=== PATIENT | female | born 1950 | race Two or more races ===

== ENCOUNTER 2018-04-13 11:32 | Outpatient (CLI) | payer MEDICARE, BC ==
[~2018-04-13 11:32] MED LIST: DULO60CA7 PO; LEVO50TA5 PO; LISI-167 PO; METF500T17 PO
[2018-04-13 12:45] LABS: INTERNATIONAL NORMALIZED RATIO 1.04 (0.93-1.1); PROTHROMBIN TIME 10.9 Seconds (9.6-11.5)
[2018-04-13 12:47] LABS: CHLORIDE 107 mmol/L (98-107)
[2018-04-13 13:03] LABS: ALANINE AMINOTRANSFERASE 84 U/L (12-78); ALBUMIN 3.7 g/dL (3.4-5.0); ALKALINE PHOSPHATASE 88 U/L (45-117); ANION GAP 7 mmol/L (5-15); BILIRUBIN,TOTAL 1.3 mg/dL (0.2-1.0); CALCIUM 9.2 mg/dL (8.5-10.1); CREATININE 0.61 mg/dL (0.55-1.02); TOTAL PROTEIN 7.4 g/dL (6.4-8.2)
[2018-04-13 13:16] LABS: BASOPHILS # (AUTO) 0.02 x10^3/uL (0-0.1); BASOPHILS % (AUTO) 0 % (0-1); EOSINOPHILS # (AUTO) 0.07 x10^3/uL (0-0.4); EOSINOPHILS % (AUTO) 1 % (1-7); LYMPHOCYTES # (AUTO) 1.56 x10^3/uL (1-3.4); LYMPHOCYTES % (AUTO) 28 % (22-44); MD NO; MEAN CORPUSCULAR HEMOGLOBIN 30.3 pg (27.0-34.8); MEAN CORPUSCULAR HGB CONC 33.8 g/dL (32.4-35.8); MEAN CORPUSCULAR VOLUME 89.6 fL (80-100); MEAN PLATELET VOLUME 8.9 fL (7.4-10.4); MONOCYTES # (AUTO) 0.38 x10^3/uL (0.2-0.8); MONOCYTES % (AUTO) 7 % (2-9); NEUTROPHILS % (AUTO) 63 % (42-75); PLATELET COUNT 176 x10^3/uL (130-400); RED BLOOD COUNT 5.28 x10^6/uL (3.82-5.3); RED CELL DISTRIBUTION WIDTH 13.4 % (9.6-15.2)
[2018-04-13] MEDS ORDERED: GADOBUTROL 7.5 MMOL/7.5 ML VIAL ONE (13:46)
[2018-05-01] MEDS ORDERED: LACT1CAP35 PO (10:25)
[2018-05-01] MEDS ORDERED: OMEP10CA4 PO (10:25)
== END 2018-04-13 23:59 | disposition home or self-care (01) ==
LOC: CFH 11:32
PROVIDERS: ATTEND Surgery
DX: C50.412 Malignant neoplasm of upper-outer quadrant of left female breast (principal); N60.01 Solitary cyst of right breast; N63.21 Unspecified lump in the left breast, upper outer quadrant; R59.1 Generalized enlarged lymph nodes
CPT/HCPCS: 36415; 80053; 82565; 85025; 85610; 85730; A9585; C8908; 77049

== ENCOUNTER → 2018-04-19 | Outpatient (CLI) | payer MEDICARE, BC | END | disposition home or self-care (01) | LOC: PETCFH 10:26 | PROVIDERS: ATTEND Surgery | DX: C50.412 Malignant neoplasm of upper-outer quadrant of left female breast (principal); R92.8 Other abnormal and inconclusive findings on diagnostic imaging of breast | CPT/HCPCS: 78815; A9552 ==

== ENCOUNTER 2018-05-04 10:18 | Day surgery (SDC) | payer MEDICARE, BC ==
[~2018-05-04] VITALS: Ht 157.5 cm; Wt 71.2 kg
[~2018-05-04 10:18] MED LIST changes: +BUPIVACAINE/PF-EPI 0.5% 1:200K ONE; +ISOSULFAN BLUE 10 MG/ML, 5ML IV ONE; +LACT1CAP35 PO; +OMEP10CA4 PO
[2018-05-04] MEDS ORDERED: LACTATED RINGERS 1,000 ML IV SCH (10:36)
[2018-05-04 10:47] VITALS: BP 130/84
[2018-05-04] MEDS ORDERED: GABAPENTIN 300 MG CAPSULE PO ONE (11:00)
[2018-05-04] MEDS ORDERED: ONDANSETRON ODT 8 MG PO ONE (11:00)
[2018-05-04] MEDS ORDERED: ACETAMINOPHEN 500 MG TABLET PO ONE (11:00)
[2018-05-04] MEDS ORDERED: SCOPOLAMINE PATCH, 1.5MG PATCH.TD72 TD ONE (11:00)
[2018-05-04] MEDS ORDERED: MIDAZOLAM 1 MG/ML, 2ML ONE (11:09)
[2018-05-04] MEDS ORDERED: FENTANYL PF 250 MCG/5ML ONE (11:09)
[2018-05-04] MEDS ORDERED: DEXAMETHASONE 4 MG/ML, 1ML ONE (12:38)
[2018-05-04] MEDS ORDERED: PROPOFOL 10 MG/ML, 20ML ONE (12:38)
[2018-05-04] MEDS ORDERED: ROCURONIUM 10 MG/ML,10ML ONE (12:38)
[2018-05-04] MEDS ORDERED: CEFAZOLIN 1,000 MG ONE (12:38)
[2018-05-04] MEDS ORDERED: ONDANSETRON 2MG/ML, 2ML ONE (12:38)
[2018-05-04] MEDS ORDERED: BUPIVACAINE/PF-EPI 0.5% 1:200K INFIL ONE (12:53)
[2018-05-04] MEDS ORDERED: LABETALOL 5MG/ML, 20ML IV PRN (13:30)
[2018-05-04] MEDS ORDERED: OXYcodone 5 MG/5 ML ORAL.SOL UDC PO PRN (13:30)
[2018-05-04] MEDS ORDERED: HALOPERIDOL 5 MG/ML IV PRN (13:30)
[2018-05-04] MEDS ORDERED: PROMETHAZINE 25 MG/ML, 1ML IV PRN (13:30)
[2018-05-04] MEDS ORDERED: HYDROmorphone 2 MG/ML, 1ML IVPush PRN (13:30)
[2018-05-04] MEDS ORDERED: hydrALAzine 20 MG/ML, 1ML IV PRN (13:30)
[2018-05-04] MEDS ORDERED: FENTANYL PF 100 MCG/2ML IV PRN (13:30)
[2018-05-04] MEDS ORDERED: ALBUTEROL SULFATE 2.5 MG/3 ML NPPB PRN (13:30)
[2018-05-04] MEDS ORDERED: SUGAMMADEX 200 MG/2 ML IVPush ONE (13:48)
== END 2018-05-04 17:05 | disposition home or self-care (01) ==
LOC: OUT 10:18
PROVIDERS: ATTEND Surgery
DX: C50.812 Malignant neoplasm of overlapping sites of left female breast (principal); R59.1 Generalized enlarged lymph nodes; F41.9 Anxiety disorder, unspecified; E11.9 Type 2 diabetes mellitus without complications; I10 Essential (primary) hypertension; E03.9 Hypothyroidism, unspecified; K21.9 Gastro-esophageal reflux disease without esophagitis; Z79.84 Long term (current) use of oral hypoglycemic drugs
CPT/HCPCS: 19303; 38525; 82962; 86803; 87340; 87806; 88305; 88307; C1729; J0690; J1100; J2250; J2405; J2704; J3010; J7120; Q0162; G0475

== ENCOUNTER 2018-05-18 08:46 | Day surgery (SDC) | payer MEDICARE, BC ==
[~2018-05-18] VITALS: Ht 157.5 cm; Wt 69.8 kg
[~2018-05-18 08:46] MED LIST changes: -BUPIVACAINE/PF-EPI 0.5% 1:200K ONE; -ISOSULFAN BLUE 10 MG/ML, 5ML IV ONE
[2018-05-18] MEDS ORDERED: LACTATED RINGERS 1,000 ML IV SCH (09:26)
[2018-05-18] MEDS ORDERED: ACETAMINOPHEN 500 MG TABLET PO ONE (09:30)
[2018-05-18] MEDS ORDERED: SCOPOLAMINE PATCH, 1.5MG PATCH.TD72 TD ONE (09:30)
[2018-05-18] MEDS ORDERED: GABAPENTIN 300 MG CAPSULE PO ONE (09:30)
[2018-05-18] MEDS ORDERED: ONDANSETRON ODT 8 MG PO ONE (09:30)
[2018-05-18 09:33] VITALS: BP 118/79
[2018-05-18] MEDS ORDERED: ACETAMINOPHEN 500 MG TABLET ONE (10:02)
[2018-05-18] MEDS ORDERED: BUPIVACAINE/PF-EPI 0.5% 1:200K ONE (10:44)
[2018-05-18] MEDS ORDERED: HEPARIN 1,000 UNITS/ML, 10ML ONE (10:44)
[2018-05-18] MEDS ORDERED: FENTANYL PF 100 MCG/2ML ONE (11:04)
[2018-05-18] MEDS ORDERED: MIDAZOLAM 1 MG/ML, 2ML ONE (11:04)
[2018-05-18] MEDS ORDERED: PROPOFOL 10 MG/ML, 20ML ONE (11:20)
[2018-05-18] MEDS ORDERED: SUCCINYLCHOLINE 20 MG/ML, 10ML ONE (11:20)
[2018-05-18] MEDS ORDERED: ONDANSETRON 2MG/ML, 2ML ONE (11:20)
[2018-05-18] MEDS ORDERED: CEFAZOLIN 1,000 MG ONE (11:20)
[2018-05-18] MEDS ORDERED: ROCURONIUM 10 MG/ML,10ML ONE (11:20)
[2018-05-18] MEDS ORDERED: KETOROLAC 30 MG/1 ML IV PRN (12:30)
[2018-05-18] MEDS ORDERED: LABETALOL 5MG/ML, 20ML IV PRN (12:30)
[2018-05-18] MEDS ORDERED: HYDROmorphone 1 MG/ML, 1ML AMP IV PRN (12:30)
[2018-05-18] MEDS ORDERED: MEPERIDINE/PF 25MG/0.5ML IVPush PRN (12:30)
[2018-05-18] MEDS ORDERED: ONDANSETRON 2MG/ML, 2ML IVPush PRN (12:30)
[2018-05-18] MEDS ORDERED: ALBUTEROL SULFATE 2.5 MG/3 ML NPPB PRN (12:30)
[2018-05-18] MEDS ORDERED: PROMETHAZINE 25 MG/ML, 1ML IV PRN (12:30)
[2018-05-18] MEDS ORDERED: FENTANYL PF 100 MCG/2ML IV PRN (12:30)
[2018-05-18] MEDS ORDERED: OXYcodone 5 MG/5 ML ORAL.SOL UDC PO PRN (12:30)
[2018-05-18] MEDS ORDERED: METOCLOPRAMIDE 5 MG/ML, 2ML IV PRN (12:30)
[2018-05-18] MEDS ORDERED: hydrALAzine 20 MG/ML, 1ML IV PRN (12:30)
== END 2018-05-18 13:40 | disposition home or self-care (01) ==
LOC: OUT 08:46
PROVIDERS: ATTEND Surgery
DX: Z45.2 Encounter for adjustment and management of vascular access device (principal); C50.812 Malignant neoplasm of overlapping sites of left female breast; F32.9 Major depressive disorder, single episode, unspecified; E11.9 Type 2 diabetes mellitus without complications; I10 Essential (primary) hypertension; E03.9 Hypothyroidism, unspecified; G47.33 Obstructive sleep apnea (adult) (pediatric); Z90.12 Acquired absence of left breast and nipple; Z79.82 Long term (current) use of aspirin; Z79.4 Long term (current) use of insulin
CPT/HCPCS: 36561; 71045; 77001; 82962; 93005; C1788; J0330; J0690; J1644; J2250; J2405; J2704; J3010; J7120; Q0162

== ENCOUNTER → 2018-06-02 | Outpatient (CLI) | payer MEDICARE, BC | END | disposition home or self-care (01) | LOC: CFH 13:14 | PROVIDERS: ATTEND Internal Medicine Hematology & Oncology | DX: C50.812 Malignant neoplasm of overlapping sites of left female breast (principal); E11.9 Type 2 diabetes mellitus without complications; Z87.891 Personal history of nicotine dependence | CPT/HCPCS: 93306 ==

== ENCOUNTER 2018-09-28 07:27 | Outpatient (CLI) | payer MEDICARE, BC | END 2018-09-28 23:59 | disposition home or self-care (01) | LOC: ROC 07:27 | PROVIDERS: ATTEND Radiology Radiation Oncology | DX: Z08 Encounter for follow-up examination after completed treatment for malignant neoplasm (principal); Z85.3 Personal history of malignant neoplasm of breast; Z79.899 Other long term (current) drug therapy | CPT/HCPCS: 77290; 77334; G0463 ==

== ENCOUNTER 2019-07-30 09:10 | Outpatient (CLI) | payer MEDICARE, BC ==
[~2019-07-30 09:10] MED LIST changes: -OMEP10CA4 PO; +OMEP10CA5 PO
== END 2019-07-30 23:59 | disposition home or self-care (01) ==
LOC: ROC 09:10
PROVIDERS: ATTEND Radiology Radiation Oncology
DX: Z08 Encounter for follow-up examination after completed treatment for malignant neoplasm (principal); C50.412 Malignant neoplasm of upper-outer quadrant of left female breast
CPT/HCPCS: G0463